=== PATIENT | female | born 1970 | race Two or more races ===

== ENCOUNTER 2018-04-27 08:33 | Day surgery (SDC) | payer OTHER ==
[~2018-04-27 08:33] MED LIST: BREO ELLIPTA 21 EACH IH; DIM PO; PROGEST PO; [UNRECOGNIZED DRUG - OTHER] PO
== END 2018-04-27 16:25 | disposition home or self-care (01) ==
LOC: CIR.AMB 08:33
DX: M77.11 Lateral epicondylitis, right elbow (principal)

== ENCOUNTER 2019-11-15 05:40 | Day surgery (SDC) | payer OTHER | END 2019-11-15 11:45 | disposition home or self-care (01) | LOC: CIR.AMB 05:40 | PROVIDERS: ATTEND Orthopaedic Surgery | DX: M75.32 Calcific tendinitis of left shoulder (principal); M75.22 Bicipital tendinitis, left shoulder; Z20.828 Contact with and (suspected) exposure to other viral communicable diseases ==

== ENCOUNTER 2022-05-17 13:59 | Emergency (ER) | payer OTHER ==
[~2022-05-17] VITALS: Ht 172.7 cm; Wt 68.9 kg
== END 2022-05-17 18:14 | disposition home or self-care (01) ==
LOC: ER 13:59
DX: M54.50 Low back pain, unspecified (principal); M25.551 Pain in right hip; Z87.09 Personal history of other diseases of the respiratory system